=== PATIENT | male | born 1965 | race Two or more races ===

== ENCOUNTER 2023-09-28 16:46 | Emergency (ER) | payer OTHER, SELFPAY ==
[2023-09-28 16:55] VITALS: BP 149/83; PULSE 66; RESP 18; TEMP 36.9; O2SAT 98; BMI 27.1
--- NOTE | 2023-09-28 17:12 | XR_ITS ---
The [address] [address] Patient Name: KRYSTAL SCOTT MRN: [id number] date: 1965 Sex: M Assigned Patient Location: ER Current Patient Location: ED.MAIN Accession/Order Number: [id number] Exam Date: 09/28/2023 17:17 Report Date: 09/28/2023 17:59 At the request of: JOANNA ALMONTE Procedure: XR lumbar spine 2-3V IMAGES REVIEWED: XR lumbar spine 2-3V COMPARISON: None available. CLINICAL INDICATION: Atraumatic right-sided pain FINDINGS/IMPRESSION: 1. Questionable subcentimeter rounded density overlying the right upper quadrant and 12th rib. 2. No radiographic evidence of acute osseous abnormality of the lumbar spine. 3. Moderate degenerative disc disease L1-L2 and L5-S1. Milder degenerative disc disease from L2 through L5. 4. Trace retrolisthesis of L5 on S1. Electronically authenticated by: OLEG HADDAD Date: 09/28/2023 17:59
--- NOTE | 2023-09-28 17:13 | ED_ITS ---
HPI - Back Pain/Injury General Chief Complaint: Back Pain/Injury Stated Complaint: BACK PAIN Time Seen by Provider: 09/28/23 16:52 Source: patient and family Mode of arrival: Wheelchair Limitations: physical limitation History of Present Illness HPI Narrative: 58-year-old male presents for right lower back pain. A few days ago he was getting out of the shower and he bent forward and had pain in his right lower b ack. It does not radiate and there was no injury such as a fall. It hurts more in certain positions. He has no history of back problems. No weakness or numbness in his leg. The pain is moderate and worse in certain positions. Related Data Previous Rx's Medication Instructions Recorded acetaminophen 300 mg-codeine 30 mg 1 tab PO Q6H PRN pain 5 days #20 09/28/23 tablet tabs cyclobenzaprine 10 mg tablet 10 mg PO TID PRN muscle spasm #20 09/28/23 tabs ibuprofen 800 mg tablet 800 mg PO Q8H PRN pain #20 tabs 09/28/23 Allergies Allergy/AdvReac Type Severity Reaction Status Date / Time No Known Drug Allergies Allergy Verified 09/28/23 16:59 Review of Systems ROS Narrative A ten point review of systems is negative except as noted above. PFSH PFSH Social History Smoking status: Former smoker Exam Narrative Exam Narrative: Nurses note and vital signs reviewed and patient is not hypoxic. General: The patient appears in no apparent distress. Patient is resting comfortably on cart. Skin: Warm, dry, no pallor noted. There is no rash noted. Head: Normocephalic, atraumatic Eye: Normal conjunctiva, no drainage Ears, Nose, Mouth, and Throat: oral mucosa is moist. Nares patent. Cardiovascular: Regular Rate and Rhythm Respiratory: Patient is in no distress, no accessory muscle use, lungs are clear to auscultation, no wheezing, rales or rhonchi Back: non-tender, no bruise or rash GI: Soft and nontender Musculoskeletal: No swelling in his leg Neurological: A&O, normal speech Psychiatric: Cooperative Constitutional Vital Signs, click to edit/add: Last Vital Signs Temp 98.4 F 09/28/23 16:55 Pulse 66 09/28/23 16:55 Resp 18 09/28/23 16:55 BP 149/83 H 09/28/23 16:55 Pulse Ox 98 09/28/23 16:55 O2 Del Method Room Air 09/28/23 16:55 Course Vital Signs Vital signs: Vital Signs Temperature 98.4 F 09/28/23 16:55 Pulse Rate 66 09/28/23 16:55 Respiratory Rate 18 09/28/23 16:55 Blood Pressure 149/83 H 09/28/23 16:55 Pulse Oximetry 98 09/28/23 16:55 Oxygen Delivery Method Room Air 09/28/23 16:55 Temperature 98.4 F 09/28/23 16:55 Pulse Rate 66 09/28/23 16:55 Respiratory Rate 18 09/28/23 16:55 Blood Pressure 149/83 H 09/28/23 16:55 Pulse Oximetry 98 09/28/23 16:55 Oxygen Delivery Method Room Air 09/28/23 16:55 MDM - Back Pain/Injury MDM Narrative Medical decision making narrative: Lumbar films showed no acute findings and urinalysis is negative. My clinical impression is that this is muscle pain. Treatment diagnosis and follow-up were discussed with the patient. Lab Data Attestation: I reviewed the patient's lab results. Labs: Lab Results 09/28/23 Range/Units 17:45 Urine Color Lt. yellow (YELLOW) Urine Clarity Clear (CLEAR) Urine pH 6.0 (5.0-9.0) Ur Specific [place] 1.025 (1.005-1.025) Urine Protein Negative (NEG/TRACE) mg/dL Urine Glucose (UA) Negative (NEGATIVE) mg/dL Urine Ketones Negative (NEGATIVE) mg/dL Urine Occult Blood Negative (NEGATIVE) Urine Nitrite Negative (NEGATIVE) Urine Bilirubin Negative (NEGATIVE) Urine Urobilinogen 0.2 (0.2-1.0) EU/dL Ur Leukocyte Esterase Negative (NEGATIVE) Discharge Plan Discharge Chief Complaint: Back Pain/Injury Clinical Impression: Strain of lumbar region Patient Disposition: Home, Self-Care Time of Disposition Decision: 18:09 Condition: Good Mode of Transportation: Private Vehicle Prescriptions / Home Meds: New cyclobenzaprine 10 mg tablet 10 mg PO TID PRN (Reason: muscle spasm) Qty: 20 0RF ibuprofen 800 mg tablet 800 mg PO Q8H PRN (Reason: pain) Qty: 20 0RF acetaminophen-codeine 300-30 mg tablet 1 tab PO Q6H PRN (Reason: pain) 5 Days Qty: 20 0RF Instructions: Low Back Strain (ED), Back Pain (ED) Stand Alone Forms: Portal Instructions Referrals: Physician,Non-Staff, MD [Primary Care Provider] - 1 week
[2023-09-28] MEDS: ORPHENADRINE 60 MG/ 2 ML VIAL IM (17:27)
[2023-09-28] MEDS: KETOROLAC TROMETHAMINE 60 MG/2 ML VIAL IM (17:28)
[2023-09-28 17:57] LABS: Bilirubin Urine NEGATIVE (NEGATIVE); Blood Urine NEGATIVE (NEGATIVE); Clarity Urine CLEAR (CLEAR); Color Urine LT. YELLOW (YELLOW); Glucose Urine UA NEGATIVE (NEGATIVE); Ketones Urine NEGATIVE (NEGATIVE); Leukocyte Esterase Urine NEGATIVE (NEGATIVE); Nitrite Urine NEGATIVE (NEGATIVE); Protein Urine NEGATIVE (NEG/TRACE); Specific Gravity Urine 1.025 (1.005-1.025); Urobilinogen Urine 0.2 EU/dL (0.2-1.0)
[2023-09-28 18:14] LABS: Bacteria Urine NONE SEEN #/HPF (NONE SEEN); Cast Seen? NONE SEEN #/LPF (NONE SEEN); Crystals Seen? None Seen #/HPF (None Seen); Mucus Urine NONE SEEN (NONE SEEN); RBC Urine NONE SEEN #/HPF (0-2); Squamous Epithelial Cell Urine RARE #/LPF (NONE/RARE); WBC Urine NONE SEEN #/HPF (NONE SEEN)
== END 2023-09-28 18:18 | disposition home or self-care (01) ==
PROVIDERS: Emergency Provider Emergency Medicine
DX: S39.012A Strain of muscle, fascia and tendon of lower back, initial encounter (principal); X50.9XXA Other and unspecified overexertion or strenuous movements or postures, initial encounter; Z87.891 Personal history of nicotine dependence
CPT/HCPCS: 72100; 81001; 96372; 99285; J1885; J2360